=== PATIENT | female | born 1935 | race Caucasian/White ===

== ENCOUNTER 2018-07-25 17:17 | Emergency (ER) | payer MEDICARE, BC ==
[2018-07-25] MEDS ORDERED: SODIUM CHLORIDE 0.9% 500 ML 500 ML IV STA (17:42)
--- NOTE | 2018-07-25 17:44 | ED ---
Nausea/Vomiting/Diarrhea HPI - General Chief complaint: Nausea/Vomiting/Diarrhea Stated complaint: weakness Time Seen by Provider: 07/25/18 17:41 Source: patient Mode of arrival: ambulatory Limitations: no limitations - History of Present Illness Initial comments: 82-year-old female who denies past medical history presenting today for chief complaint of diarrhea. Patient states that last evening and Monday all day she experienced diarrhea with every bowel movement. She states her had similar symptoms a few days prior. She states Monday she bought blackberries and grape juice in attempt to alleviate the symptoms, she states she was feeling better and noticed an improvement in the diarrhea. Patient states is green in color, denies any melena or hematochezia. Patient denies any foul odor. Patient denies recent colonoscopy, denies any abnormal previous colonoscopies. Patient states she has no abdominal pain or cramping. She does state she notices gurgling of her stomach. Patient states for 1 day she felt nauseous however has not had nausea since or any episodes of emesis. Patient states she has had IBS-like symptoms however she does not have official diagnosis on-and-off for the past few years. Denies any history of colitis or bloody stools. Patient denies a pattern with the bowel movements, she does not state is related to oral intake. Patient states she has been tolerating by mouth intake. Remaining review of systems is negative, patient denies chest pain, dyspnea, dyspnea on exertion, lower extremity edema, back pain, headache, dizziness, fever, chills, night sweats, recent antibiotic use or travel, previous intra-abdominal surgeries. Upon arrival pt BP elevated, remaining VS within acceptable limits. - Related Data Home Medications Medication Instructions Recorded Confirmed Loperamide HCl [Imodium A-D] 2 - 4 mg PO QID PRN 07/25/18 07/25/18 Allergies Allergy/AdvReac Type Severity Reaction Status Date / Time No Known Allergies Allergy Verified 07/25/18 17:44 Review of Systems ROS Statement: Those systems with pertinent positive or pertinent negative responses have been documented in the HPI. ROS Other: All systems not noted in ROS Statement are negative. Past Medical History Past Medical History: No Reported History History of Any Multi-Drug Resistant Organisms: None Reported Past Surgical History: No Surgical Hx Reported Past Psychological History: No Psychological Hx Reported Smoking Status: Never smoker Past Alcohol Use History: Occasional Past Drug Use History: None Reported General Exam - General Exam Comments Initial Comments: General: The patient is awake and alert, in no distress, and does not appear acutely ill. Eye: Pupils are equal, round and reactive to light, extra-ocular movements are intact. No nystagmus. There is normal conjunctiva bilaterally. No signs of icterus. Ears, nose, mouth and throat: There are moist mucous membranes and no oral lesions. Neck: The neck is supple, there is no tenderness or JVD. Cardiovascular: There is a regular rate and rhythm. No murmur, rub or gallop is appreciated. Respiratory: Lungs are clear to auscultation, respirations are non-labored, breath sounds are equal. No wheezes, stridor, rales, or rhonchi. Gastrointestinal: No noted diaphoresis, jaundice, pallor, protecting postures or squirming. Symmetrical pigmentation of abdomen without signs of inflammation.. Umbilicus mildline, inverted without swelling. No dilated veins. Abdomen contour scaphoid , no noted abdominal distention. No visible masses. No peristalsis, aortic pulsations, or ventral hernia. Bowel sounds audible in all 4 quadrants, unremarkable. No tenderness to light or deep palpation of the entire abdomen. Liver edge, not palpable. Spleen edge, right and left kidney not palpable. Superior bladder margin non-tender. Special Testing: Negative [place], Rovsing, McBurney, Araceli, cutaneous hyperesthesia. Negative Heel Jar test. No CVA tenderness. Digital rectal exam deferred. Negative quintanilla turners or cullens sign Musculoskeletal: Normal ROM, no tenderness. Strength 5/5. Sensation intact. Pulses equal bilaterally 2+. Neurological: A&O x 3. CN II-XII intact, There are no obvious motor or sensory deficits. Coordination appears grossly intact. Speech is normal. Skin: Skin is warm and dry and no rashes or lesions are noted. Psychiatric: Cooperative, appropriate mood & affect, normal judgment. Limitations: no limitations Course Vital Signs 07/25/18 07/25/18 17:18 19:08 Temperature 97.6 F 97.5 F L Pulse Rate 72 72 Respiratory 18 17 Rate Blood Pressure 179/89 158/66 O2 Sat by Pulse 98 100 Oximetry Medical Decision Making - Medical Decision Making This is a well-appearing 82-year-old female no comorbidities presenting today for chief complaint of diarrhea. There is history of sick contacts. Patient has not had recent travel or antibiotic use. Patient denies fever or bloody stools. Benign abdominal exam, no evidence of pain. Given patient's age with persistence of diarrhea, CT of the abdomen and pelvis was obtained revealing no evidence concerning for mass, diverticulitis or other acute abdominal processes. Patient appears well-hydrated on examination, tolerating by mouth intake. Patient was given a total of 1 L of IV fluids during her stay in the emergency department. Patient was unable to give us a urine sample, denies any urinary symptoms, there is no evidence of leukocytosis. Awaiting stool sample results including stool culture, white blood cell and C. difficile testing. Patient will be updated on these results however at this time I do not feel there are alter patient's course, if antibiotics aren't initiated I will contact the patient and escribe or call in perscription to pharmacy of choice. Pt is agreeable with this plan, stating she is ready for discharge. I did discuss the case with attending provider Dr. Orellana who revealed laboratory studies, we discussed patient's presentation as well as medical history-he agreed the impression and plan. Patient discharged appearing well - Lab Data Result diagrams: 07/25/18 17:51 07/25/18 17:51 Lab Results 07/25/18 07/25/18 07/25/18 Range/Units 17:51 17:51 17:51 WBC 6.6 (3.8-10.6) k/uL RBC 4.82 (3.80-5.40) m/uL Hgb 13.6 (11.4-16.0) gm/dL Hct 42.5 (34.0-46.0) % MCV 88.2 (80.0-100.0) fL MCH 28.3 (25.0-35.0) pg MCHC 32.1 (31.0-37.0) g/dL RDW 13.3 (11.5-15.5) % Plt Count 334 (150-450) k/uL Neutrophils % 75 % Lymphocytes % 14 % Monocytes % 7 % Eosinophils % 3 % Basophils % 0 % Neutrophils # 5.0 (1.3-7.7) k/uL Lymphocytes # 0.9 L (1.0-4.8) k/uL Monocytes # 0.5 (0-1.0) k/uL Eosinophils # 0.2 (0-0.7) k/uL Basophils # 0.0 (0-0.2) k/uL Sodium 137 (137-145) mmol/L Potassium 4.5 (3.5-5.1) mmol/L Chloride 104 (98-107) mmol/L Carbon Dioxide 24 (22-30) mmol/L Anion Gap 9 mmol/L BUN 7 (7-17) mg/dL Creatinine 0.53 (0.52-1.04) mg/dL Est GFR (CKD-EPI)AfAm >90 (>60 ml/min/1.73 sqM) Est GFR (CKD-EPI)NonAf 90 (>60 ml/min/1.73 sqM) Glucose 101 H (74-99) mg/dL Plasma Lactic Acid Kaushik 1.1 (0.7-2.0) mmol/L Calcium 9.0 (8.4-10.2) mg/dL Total Bilirubin 0.6 (0.2-1.3) mg/dL AST 30 (14-36) U/L ALT 38 (9-52) U/L Alkaline Phosphatase 100 (38-126) U/L Total Protein 7.2 (6.3-8.2) g/dL Albumin 4.2 (3.5-5.0) g/dL Amylase <30 L (30-110) U/L Lipase 33 (23-300) U/L Disposition Clinical Impression: Diarrhea Disposition: HOME SELF-CARE Condition: Good Instructions (If sedation given, give patient instructions): Acute Diarrhea (ED ) Additional Instructions: Please use medication as discussed. Please follow-up with family doctor in the next 2 days, discuss elevated BP reading. Please return to emergency room if the symptoms increase or worsen or for any other concerns. Is patient prescribed a controlled substance at d/c from ED?: No Referrals: Con Goldman DO [Primary Care Provider] - 1-2 days Time of Disposition: 20:04
[2018-07-25 18:09] LABS: Basophils % (A) 0 %; Eosinophils # (A) 0.2 k/uL (0-0.7); Eosinophils % (A) 3 %; HCT 42.5 % (34.0-46.0); HGB 13.6 gm/dL (11.4-16.0); Lymphocytes # (A) 0.9 k/uL (1.0-4.8); Lymphocytes % (A) 14 %; MCH 28.3 pg (25.0-35.0); MCHC 32.1 g/dL (31.0-37.0); MCV 88.2 fL (80.0-100.0); Mean Platelet Volume 7.4; Monocytes # (A) 0.5 k/uL (0-1.0); Monocytes % (A) 7 %; Neutrophils % (A) 75 %; Platelet Count 334 k/uL (150-450); RBC 4.82 m/uL (3.80-5.40); RDW 13.3 % (11.5-15.5); WBC 6.6 k/uL (3.8-10.6)
[2018-07-25 18:21] LABS: ALT 38 U/L (9-52); AST 30 U/L (14-36); Albumin 4.2 g/dL (3.5-5.0); Alkaline Phosphatase 100 U/L (38-126); Amylase <30 U/L (30-110); Anion Gap 9 mmol/L; Blood Urea Nitrogen 7 mg/dL (7-17); Carbon Dioxide 24 mmol/L (22-30); Chloride 104 mmol/L (98-107); Glucose 101 mg/dL (74-99); Lipase 33 U/L (23-300); Potassium 4.5 mmol/L (3.5-5.1); Sodium 137 mmol/L (137-145); Total Bilirubin 0.6 mg/dL (0.2-1.3); Total Protein 7.2 g/dL (6.3-8.2)
[2018-07-25 19:10] VITALS: TEMP 97.5
--- NOTE | 2018-07-25 19:31 | CT ---
EXAMINATION TYPE: CT abdomen pelvis w con DATE OF EXAM: 07/25/2018 COMPARISON: None HISTORY: diarrhea, cramping CT DLP: 550.5 mGycm Automated exposure control for dose reduction was used. TECHNIQUE: Helical acquisition of images was performed from the lung bases through the pelvis. CONTRAST: Performed without Oral Contrast and with IV Contrast, patient injected with 100 mL of Isovue 300. FINDINGS: Lung bases are clear. There is no pleural effusion. There is subsegmental atelectasis at the left elo g base. There is small hiatal hernia. Heart size is normal. There is no pericardial effusion. Liver a ppears normal. Bile ducts are not dilated. Gallbladder appears normal. There is small calcified's iraj e granuloma. Pancreas appears normal. There is mild vascular calcification. There is no adrenal mass. Kidneys show satisfactory contrast opacification. There is no hydronephrosis. Ureters are not dilate d. There are small renal cortical cysts measuring less than 1 cm. There is no renal atrophy. The bladder distends smoothly. There is no inguinal hernia. There is no free fluid in the pelvis. I s ee no sign of a bowel obstruction. There are multiple sigmoid diverticula. There is no evidence of th ickened appendix. Appendix is partly filled with air and appears normal. There is no mesenteric edema . There is no sign of free air. There is degenerative disc space narrowing in the lumbar spine. I see no compression fracture. IMPRESSION: SIGMOID DIVERTICULOSIS WITHOUT DIVERTICULITIS. NORMAL APPENDIX. SMALL HIATAL HERNIA. NO EVIDENCE OF A CUTE ABDOMEN AND PELVIS.
[2018-07-25] MEDS ORDERED: SODIUM CHLORIDE 0.9% 500 ML 500 ML IV ONE (19:42)
[2018-07-25 20:28] VITALS: BP 175/78; PULSE 65; RESP 19
[2018-07-25 22:40] LABS: Appearance,Urine Clear (Clear); Bilirubin,Urine Negative (Negative); Blood,Urine Negative (Negative); Color,Urine Colorless; Glucose,Urine (UA) Negative (Negative); Ketones,Urine Trace (Negative); Leukocyte Esterase,Urine Negative (Negative); Nitrite,Urine Negative (Negative); PH, Urine 5.5 (5.0-8.0); Protein,Urine Negative (Negative); Specific Gravity,Urine 1.015 (1.001-1.035); Urobilinogen,Urine <2.0 mg/dL (<2.0)
== END 2018-07-25 20:27 | disposition home or self-care (01) ==
LOC: EC 17:17
DX: R19.7 Diarrhea, unspecified (principal); R03.0 Elevated blood-pressure reading, without diagnosis of hypertension
CPT/HCPCS: 99285; 36415; 80053; 82150; 83605; 83690; 85025; 82272; 81003; 87324; 87045; 83630; 87046; 74177; Q9967